=== PATIENT | female | born 1955 | race American Indian/Alaskan Native ===

== ENCOUNTER 2017-09-03 12:25 | Outpatient (CLI) | payer OTHER ==
--- NOTE | 2017-09-03 15:44 | XRay Report ---
XRAY RIGHT FOOT THREE VIEWS: 09/03/17 12:25:00 CLINICAL: Right foot pain. FINDINGS: Mild osteopenia. No fracture or dislocation. Mild hallux valgus deformity and mild arthritis at the first MTP joint. Mild soft tissue swelling at the first MTP joint. The rest of the joints are normal. Moderate nonspecific soft tissue swelling of the forefoot. No soft tissue air or foreign body. IMPRESSION: Mild arthritis at the first MTP joint and nonspecific soft tissue swelling of the forefoot.
== END 2017-09-03 12:26 | disposition home or self-care (01) ==
LOC: SPVIMAG 12:25
PROVIDERS: ATTEND Orthopaedic Surgery Sports Medicine
DX: M19.071 Primary osteoarthritis, right ankle and foot (principal)

== ENCOUNTER 2021-01-01 06:44 | Day surgery (SDC) | payer MEDICARE ==
[2021-01-01] MEDS ORDERED: SODIUM CHLORIDE 0.9% 1000 ML 1,000 ML IV SCH (07:00)
[2021-01-01] MEDS ORDERED: WATER FOR IRRIG STERILE 1,000 ML BOTTLE ONE (07:53)
[2021-01-01] MEDS ORDERED: WATER FOR IRRIG STERILE 250 ML BOTTLE IR ONE (07:53)
--- NOTE | 2021-01-01 08:00 | Anesthesia Consultation ---
Anesthesia Consult and Med Hx Date of service: 01/01/21 - Airway Anesthetic Teeth Evaluation: Partials (Multiple broken teeth) ROM Head & Neck: Adequate Mental/Hyoid Distance: Adequate Mallampati Class: Class II Intubation Access Assessment: Probably Good - Pulmonary Exam CTA: Yes - Pre-Operative Health Status ASA Pre-Surgery Classification: ASA3 Proposed Anesthetic Plan: MAC - Pulmonary Hx Smoking: No Hx Asthma: No Hx Respiratory Symptoms: No - Cardiovascular System Hx Hypertension: Yes Hx Heart Attack/AMI: No Hx Angina: No - Central Nervous System Hx Neuromuscular Disorder: No Hx Seizures: No Hx Psychiatric Problems: Yes (Anxiety) - Gastrointestinal Hx Gastroesophageal Reflux Disease: Yes - Endocrine Hx Renal Disease: No Hx Liver Disease: No Hx Insulin Dependent Diabetes: No Hx Non-Insulin Dependent Diabetes: Yes Hx Thyroid Disease: No - Other Systems Hx Alcohol Use: No (Remote use) Hx Substance Use: No (Remote use) Hx Obesity: Yes (BMI 35.4) - Additional Comments Anesthesia Medical History Comments: Patient denied previous anesthesia complications
--- NOTE | 2021-01-01 08:04 | Anesthesia Day of Surgery ---
Anesthesia Day of Surgery - Day of Surgery Patient Examined: Yes Patient H&P Reviewed: Yes Patient is NPO: Yes Beta Blockers: No Cardiac Clearance: No Pulmonary Clearance: No
[2021-01-01] MEDS ORDERED: ONDANSETRON 4 MG/2 ML INJ ONE (08:20)
[2021-01-01] MEDS ORDERED: propofoL 200 MG/20 ML VIAL IV ONE ×2 (08:20→08:47)
[2021-01-01] MEDS ORDERED: LIDOCAINE MPF (2%) 20 MG/1 ML VIAL 5 ML ONE (08:20)
[2021-01-01 09:44] VITALS: BP 140/62
--- NOTE | 2021-01-01 10:02 | Post Anesthesia Evaluation ---
- Post Anesthesia Evaluation Patient Participated: Yes Airway Patent: Yes Stable Respiratory Function: Yes Nausea/Vomiting: No Temp > 96.8F: Yes Pain Manageable: Yes Adequeate Hydration: Yes Anesthesia Complications: No
--- NOTE | 2021-01-01 11:20 | Procedure Note ---
Date of procedure: 01/01/21 Pre-op diagnosis: H/o sigmoid polpy Post-op diagnosis: same (Also, mild sigmoid diverticulosis) Procedure: Colonoscopy to cecum with snare polypectomy of sigmoid polpy Description of procedure: Pt was placed left side down. MAC anesthesia was administered. Colonoscope was introduced into the rectum and was advanced to the cecum without difficulty. Prep was adequate. The scope was slowly withdrawn with careful circumferential visualization of the colonic mucosa. Besides the mild sigmoid diverticulosis, a pedunculated 1.5 cm sigmoid polyp was identified at 25 cm. This was photodocumented and snared with cautery. The polyp was retrieved with a basket and was removed. A photograph of the post- polypectomy site was obtained. The remainder of the exam was unremarkable. Insufflated air was aspirated prior to withdrawal of the scope. Pt tolerated the procedure well. Anesthesia: MAC Surgeon: EFFIE PERRY Estimated blood loss: none Pathology: list (Sigmoid polyp) Specimen disposition: to lab Condition: stable Disposition: PACU
== END 2021-01-01 10:05 | disposition home or self-care (01) ==
LOC: GIO 06:44
PROVIDERS: ATTEND Surgery
DX: Z12.11 Encounter for screening for malignant neoplasm of colon (principal); D12.5 Benign neoplasm of sigmoid colon; K57.30 Diverticulosis of large intestine without perforation or abscess without bleeding; I10 Essential (primary) hypertension; E11.9 Type 2 diabetes mellitus without complications; F41.9 Anxiety disorder, unspecified; E66.9 Obesity, unspecified; K21.9 Gastro-esophageal reflux disease without esophagitis; Z72.89 Other problems related to lifestyle; Z86.010 Personal history of colon polyps; Z88.8 Allergy status to other drugs, medicaments and biological substances; Z68.35 Body mass index [BMI] 35.0-35.9, adult
CPT/HCPCS: 45385; 82962; 88305; J2405; J2704; J7030